=== PATIENT | male | born 1980 | race Caucasian/White ===

== ENCOUNTER 2019-05-11 21:58 | Emergency (ER) | payer MEDICAID, SELFPAY | END 2019-05-12 | disposition home or self-care (01) | PROVIDERS: Emergency Provider Emergency Medicine; Family Provider Family Medicine; Visit Provider Emergency Medicine | DX: M54.16 Radiculopathy, lumbar region (principal); I10 Essential (primary) hypertension; Z87.891 Personal history of nicotine dependence ==

== ENCOUNTER 2019-06-11 11:28 | Outpatient (CLI) | payer MEDICAID, SELFPAY ==
--- NOTE | 2019-06-11 11:36 | MR_ITS ---
WS: [id number] MRI LUMBAR SPINE NONCONTRAST HISTORY: LUMBOSACRAL Spondylosis; lumbosacral DDD COMPARISON: 10/16/2005 TECHNIQUE: Sagittal and axial multisequence imaging is submitted. Sagittal survey demonstrates slight increase in thoracic kyphosis. 7 cervical and 12 thoracic vertebr al bodies are numbered. 5 lumbar type vertebral bodies and transitional S1. Disc space narrowing and desiccation throughout the lumbar spine. Conus terminates normally at L1. L1-L2: Normal. L2-L3: Small amount of fluid in the facet joints with no stenosis. L3-L4: Annular disc bulging and a moderate-sized LEFT paracentral disc protrusion with mild contact o f the cord. Posterior displacement and abutment on the L4 nerve root in the lateral recess. L4-L5: Annular disc bulging and osteophyte deformity. Moderate ligamentum flavum and facet arthropath y. Mild central and subarticular recess stenosis. L5-S1: Diffuse annular disc bulging. Moderate-sized disc protrusion extends into the LEFT paracentral and LEFT foramen with deformity of the thecal sac and encroachment on the S1 nerve root. LEFT subart icular recess and foraminal stenosis. S1-S2 disc level demonstrates broad posterior disc bulging with a central disc protrusion. No signif icant stenosis. There is a rudimentary disc at the S1-S2 level. MR/MR lumbar spine wo con* [id number] IMPRESSION: 1. 5 lumbar type vertebral bodies with a transitional S1 vertebral body. Pleas e note this numbering pattern if surgery is ever contemplated. 2. Moderate size LEFT paracentral and proximal foraminal disc protrusion at L5 -S1 with encroachment into the subarticular recess and foramen. 3. Moderate-sized LEFT paracentral disc protrusion at L3-4 with mild encroachm ent upon the LEFT L4 nerve root.
--- NOTE | 2019-06-11 12:08 | XR_ITS ---
WS: [id number] Orbits 2 views. HISTORY: Screening prior to MRI. No metallic foreign bodies are noted over the orbits or globes or within the soft tissues. XR/[place] [id number] IMPRESSION: No metallic foreign bodies. Proceed to MRI.
== END 2019-06-11 11:29 | disposition home or self-care (01) ==
LOC: RADSHAW 11:34
PROVIDERS: Family Provider Family Medicine; PCP Family Medicine; Visit Provider Nurse Practitioner Psychiatric/Mental Health
DX: M47.817 Spondylosis without myelopathy or radiculopathy, lumbosacral region (principal); M51.17 Intervertebral disc disorders with radiculopathy, lumbosacral region; Z01.818 Encounter for other preprocedural examination; M51.27 Other intervertebral disc displacement, lumbosacral region; M51.26 Other intervertebral disc displacement, lumbar region
CPT/HCPCS: 70030; 72148

== ENCOUNTER 2019-08-17 14:46 | Outpatient (CLI) | payer MEDICAID, SELFPAY ==
--- NOTE | 2019-08-17 15:15 | MR_ITS ---
WS: [id number] MRI LUMBAR SPINE WITH CONTRAST TECHNIQUE: Sagittal T1, T2 and STIR imaging. Axial T1 and T2 imaging. Post gadolinium imaging was obt ained. CLINICAL INFORMATION: low back pain. COMPARISON: MRI June 11, 2019 FINDINGS: 5 lumbar type vertebral bodies. S1 is transitional and lumbarized in keeping with the prior numbering convention. Recommend correlation with radiographs prior to surgical intervention. Left pericentral protrusion L5-S1 is progressed from previous. L1-L2: Normal. L2-L3: Normal. L3-L4: Left pericentral disc protrusion with impingement left subarticular recess. Impingement betty sing left L4 nerve root. Mild central canal stenosis. Mild facet arthropathy. Foramen are patent. L4-L5: Mild annular bulging. Mild facet arthropathy. Spinal canal and foramen are patent. L5-S1: Prominent left pericentral disc protrusion is new from previous. Impingement on the traversing left S1 nerve root. Mild facet arthropathy. Mild central canal stenosis. Foramen are patent. S1-S2: Mild disc bulging with osteophytic ridging. Mild facet arthropathy. Spinal canal and foramen a re patent. Visualized pelvic bony structures: Normal. Paravertebral soft tissues: Normal. MR/MR lumbar spine wo/w con [id number] IMPRESSION: 1. S1 is transitional and lumbarized in keeping with the prior numbering conve ntion. Recommend radiograph correlation prior to surgical intervention. 2. Prominent left pericentral protrusion L5-S1 is new/progressed from previou s with impingement left subarticular recess and traversing left S1 nerve root. Recommend correlation left S1 nerve root symptoms. 3. Small left pericentral protrusion L3-4 impinges the left subarticular reces s and contacts the left L4 nerve root. Mild left foraminal narrowing.
--- NOTE | 2019-08-17 16:00 | XR_ITS ---
WS: [id number] LUMBAR SPINE FLEXION AND EXTENSION TECHNIQUE: 3 views of the lumbar spine: Lateral neutral, flexion, and extension views. CLINICAL INFORMATION: Low back pain COMPARISON: None. FINDINGS: Bilateral L5 spondylolysis. Grade 1 anterolisthesis L5 on S1 measuring 7.8 mm. This increases to 8.7 mm in flexion and decreases to 5.6 mm on extension. Mild disc space narrowing L3-L4 L4-L5 and L5-S1. Moderate facet arthropathy l ower lumbar spine. XR/XR lumbar spine f/e only [id number] IMPRESSION: Mild flexion/extension stability L5-S1 as described above.
== END 2019-08-17 14:47 | disposition home or self-care (01) ==
LOC: RADWPI 14:50
PROVIDERS: Family Provider Family Medicine; PCP Family Medicine; Visit Provider Licensed Practical Nurse
DX: M51.26 Other intervertebral disc displacement, lumbar region (principal)
CPT/HCPCS: 72120; 72158; A9579

== ENCOUNTER 2019-09-16 12:54 | Outpatient (CLI) | payer MEDICAID, SELFPAY ==
--- NOTE | 2019-09-16 09:00 | XR_ITS ---
WS: [id number] HIPS BILATERAL TECHNIQUE: 5 views bilateral hips Including pelvis CLINICAL INFORMATION: hip pain COMPARISON: None. FINDINGS: Mild degenerative arthritis both hips with joint space narrowing. Normal pubic rami. Femoral heads an d necks are normal in appearance. No acute fractures. Normal proximal femurs. Bony pelvis is otherwis e unremarkable. XR/XR hip BI 3-4V wo/w pel [id number] IMPRESSION: No acute fractures
--- NOTE | 2019-09-16 13:15 | CT_ITS ---
WS: [id number] CT LUMBAR SPINE TECHNIQUE: Noncontrast CT of the lumbar spine with coronal and sagittal reformatted images. CLINICAL INFORMATION: lumbar pain COMPARISON: MRI August 17, 2019 DLP: [address] scans at [facility] use at least one of these dose optimization techniques: automat ed exposure control; mA and/or kV adjustment per patient size (includes targeted exams where dose is matched to clinical indication); or iterative reconstruction. FINDINGS: 5 lumbar type vertebral bodies. S1 is transitional and lumbarized in keeping with the prior numbering conventions. Prominent left pericentral disc protrusion L5-S1 appears unchanged since the recent MRI . Impingement on the left subarticular recess at this level. Chronic bilateral pars defects S1-2 with sclerosis L1-L2: Normal. L2-L3: Normal. L3-L4: Again seen is the small left pericentral disc protrusion with impingement left subarticular re cess. Impingement traversing left L4 nerve root. Mild central canal stenosis. Mild facet arthropathy. Foramen are patent. L4-L5: Small central disc protrusion with osteophytic ridging. Slight effacement of ventral thecal sa c. Mild facet arthropathy. Spinal canal and foramen are patent. L5-S1: Prominent left pericentral disc protrusion is stable since the prior MRI. Impingement on the t raversing left S1 nerve root. Mild facet arthropathy. Mild central canal stenosis. Mild left proximal foraminal narrowing. S1-S2: Mild disc bulging with osteophytic ridging. Moderate facet arthropathy. Spinal canal and serafin en are patent. Chronic bilateral pars defects at this level with sclerosis. No anterolisthesis. Visualized pelvic bony structures: Normal. Paravertebral soft tissues: Normal. Normal caliber abdominal aorta. CT/CT lumbar spine wo con* [id number] IMPRESSION: 1. Chronic bilateral pars defects S1 with sclerosis. No anterolisthesis. 2. S1 is transitional and lumbarized in keeping with the prior numbering conven tion. Recommend radiographic correlation prior to surgical intervention. 2. Prominent left pericentral protrusion L5-S1 is stable from previous with imp ingement left subarticular recess and traversing left S1 nerve root. Recommend correlation left S1 nerve root symptoms. 3. Small left pericentral protrusion L3-4 impinges the left subarticular recess and contacts the left L4 nerve root. Mild left foraminal narrowing.
== END 2019-09-16 12:55 | disposition home or self-care (01) ==
LOC: RADWPI 12:56
PROVIDERS: Family Provider Family Medicine; PCP Family Medicine; Visit Provider Specialist
DX: M51.27 Other intervertebral disc displacement, lumbosacral region (principal); M51.26 Other intervertebral disc displacement, lumbar region; M25.552 Pain in left hip; M25.551 Pain in right hip
CPT/HCPCS: 72131; 73522

== ENCOUNTER → 2019-11-13 10:15 | Outpatient (BNVA) | payer MEDICAID, SELFPAY | PROVIDERS: Family Provider Family Medicine; PCP Family Medicine; Referring Provider Specialist; Visit Provider Anesthesiology Pain Medicine | DX: M43.17 Spondylolisthesis, lumbosacral region (principal); M54.9 Dorsalgia, unspecified; M51.17 Intervertebral disc disorders with radiculopathy, lumbosacral region; M51.16 Intervertebral disc disorders with radiculopathy, lumbar region; M25.551 Pain in right hip; M25.552 Pain in left hip; M51.37 Other intervertebral disc degeneration, lumbosacral region; M96.1 Postlaminectomy syndrome, not elsewhere classified; Z79.891 Long term (current) use of opiate analgesic | CPT/HCPCS: 99204; 99205 ==

== ENCOUNTER → 2019-12-11 09:16 | Outpatient (BNVA) | payer MEDICAID, SELFPAY | PROVIDERS: Family Provider Family Medicine; PCP Family Medicine; Visit Provider Anesthesiology Pain Medicine | DX: M51.16 Intervertebral disc disorders with radiculopathy, lumbar region (principal); M43.06 Spondylolysis, lumbar region; M51.17 Intervertebral disc disorders with radiculopathy, lumbosacral region; M51.37 Other intervertebral disc degeneration, lumbosacral region; M54.9 Dorsalgia, unspecified; M25.551 Pain in right hip; M25.552 Pain in left hip; M96.1 Postlaminectomy syndrome, not elsewhere classified; Z98.890 Other specified postprocedural states; Z79.891 Long term (current) use of opiate analgesic | CPT/HCPCS: 99214 ==

== ENCOUNTER → 2019-12-28 13:35 | Outpatient (BNVA) | payer MEDICAID, SELFPAY | PROVIDERS: Family Provider Family Medicine; PCP Family Medicine; Visit Provider Anesthesiology Pain Medicine | DX: M51.17 Intervertebral disc disorders with radiculopathy, lumbosacral region (principal); M51.16 Intervertebral disc disorders with radiculopathy, lumbar region; M54.9 Dorsalgia, unspecified | CPT/HCPCS: 64483; 64484; J1040; J3490 ==

== ENCOUNTER → 2020-01-14 13:16 | Outpatient (BNVA) | payer MEDICAID, SELFPAY | PROVIDERS: Family Provider Family Medicine; PCP Family Medicine; Visit Provider Anesthesiology Pain Medicine | DX: M51.16 Intervertebral disc disorders with radiculopathy, lumbar region (principal); M43.17 Spondylolisthesis, lumbosacral region; M51.17 Intervertebral disc disorders with radiculopathy, lumbosacral region; M51.37 Other intervertebral disc degeneration, lumbosacral region; M25.551 Pain in right hip; M25.552 Pain in left hip; M96.1 Postlaminectomy syndrome, not elsewhere classified; M54.9 Dorsalgia, unspecified; Z98.890 Other specified postprocedural states; Z79.891 Long term (current) use of opiate analgesic | CPT/HCPCS: 99214 ==

== ENCOUNTER 2020-02-21 11:29 | Emergency (ER) | payer MEDICAID, SELFPAY ==
[2020-02-21 11:32] VITALS: BP 150/83; PULSE 79; RESP 14; TEMP 36.3; O2SAT 98; BMI 39.9
--- NOTE | 2020-02-21 12:26 | USR_ITS ---
PROCEDURE INFORMATION: Exam: US Duplex Right Lower Extremity Veins, Limited Exam date and time: 02/21/2020 12:32 PM Age: 39 years old Clinical indication: Swelling (edema) of limb; Lower extremity, right; Additional info: Swelling - possible dvt TECHNIQUE: Imaging protocol: Real-time Duplex ultrasound of the Right Lower Extremity with 2-D glez scale, color Doppler flow and spectral waveform analysis with image documentation. Limited exam was focused on the right lower extremity veins. COMPARISON: No relevant prior studies available. FINDINGS: Right deep veins: Unremarkable. The common femoral, femoral, proximal profunda femoral, popliteal and visualized calf veins are patent without thrombus. Normal Doppler waveforms. Normal compressibility and/or augmentation response. Right superficial veins: Unremarkable. Saphenofemoral junction is patent without thrombus. Soft tissues: Unremarkable. US/[place] [id number] IMPRESSION: No sonographic evidence of deep vein thrombosis.
[2020-02-21 12:34] LABS: Basophils # 0.1 10^3/uL (0.0-0.1); Basophils % 1.5 %; Eosinophils # 0.2 10^3/uL (0.0-0.8); Eosinophils % 4.4 %; Hematocrit 42.3 % (42.0-52.0); Hemoglobin 14.4 g/dL (11.7-16.6); Lymphocytes # 1.7 10^3/uL (0.8-4.8); Lymphocytes % 31.7 %; Mean Corpuscular Hemoglobin 29.6 pg (28.0-34.0); Mean Platelet Volume 10.7 fL (7.4-10.4); Monocytes # 0.4 10^3/uL (0.2-0.9); Monocytes % 7.4 %; Neutrophils # 2.88 10^3/uL (1.8-7.7); Neutrophils % 54.6 %; Nucleated Red Blood Cells % 0 %; Platelet Count 194 10^3/cmm (130-400); Red Blood Count 4.86 10^6/uL (4.1-5.3); Red Cell Distribution Width 13.4 % (12.1-15.1); White Blood Count 5.3 10^3/uL (4.0-10.0)
--- NOTE | 2020-02-21 12:53 | W.ED.GENADLT ---
HPI - General Adult General: Chief complaint: General Medical Stated complaint: SWELLING EXTREMITIES Time Seen by Provider: 02/21/20 11:56 Source: patient Mode of arrival: ambulatory Limitations: no limitations History of Present Illness: HPI narrative: 39-year-old male patient presents to the emergency department with lower extremity edema. Patient states he is having some pain in the right calf. Patient states he has been traveling recently after being off work for 6 months. Patient states he has never had swelling like this. Patient denies any chest pain or shortness of breath. Patient states he does have multiple bug bites to both lower extremities and is unsure if this is related. Patient denies being bit by a tick. Patient denies any other systemic symptoms of illness. Patient is afebrile. Associated symptoms: Deny chest pain, dyspnea, headache(s), nausea, palpitations, syncope or vomiting Review of Systems General: Reports: 10 or more systems reviewed and unremarkable except in HPI and below Const: Denies: fever(s) or chills Eyes: Denies: change in vision or blurry vision Card: Denies: chest pain, palpitations, irregular heart rhythm, lightheadedness, syncope or dyspnea on exertion Resp: Denies: dyspnea, productive cough, non-productive cough, wheezing or pain on inspiration GI: Denies: abdominal pain, nausea, vomiting, diarrhea or constipation : Denies: flank pain, difficulty urinating, dysuria or urinary frequency Musc: Reports: back pain (Patient complains of back pain states this is chronic and his pain is no different than normal), extremity pain and extremity swelling; Denies: neck pain Neuro: Denies: headache(s), numbness in extremities, weakness in extremities or lack of coordination PFS ED PFSH: Medical History Degeneration of lumbar or lumbosacral intervertebral disc Displacement of lumbar disc with radiculopathy Hip pain, bilateral Intervertebral disc disorder with radiculopathy of lumbosacral region Lumbar spondylolysis Spondylolisthesis, lumbosacral region Surgical History History of lumbar surgery (~2006) 08/20/2006 Dr. 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 History of recent travel: No Physical Exam Const: COMMON NORMALS: no acute distress, average body habitus, patient oriented x3, no limitations, healthy appearing, alert and well nourished Chest: COMMONS NORMALS: normal inspection of the chest, normal palpation of entire chest wall, normal inspection of the breasts and normal palpation of the breasts Resp: COMMON NORMALS: normal respiratory effort, No retractions, No use of accessory muscles, clear to auscultation bilaterally and percussion normal AUSCULTATION: clear to auscultation bilaterally PERCUSSION: percussion normal Cardio: COMMON NORMALS: regular rate and regular rhythm RATE: regular rate RHYTHM: regular rhythm : COMMON NORMALS: Yes no CVA tenderness BLADDER/KIDNEY EXAM: Yes no CVA tenderness Back/Pelvis: COMMON NORMALS: no CVA tenderness Extremity: RIGHT LOWER EXTREMITY: Yes lower leg Right lower leg: Yes neurovascular exam (Neurovascularly intact) and Yes other (Patient does have calf tenderness and a positive Homans sign) LEFT LOWER EXTREMITY: Yes lower leg (Patient denies any pain. Patient is neurovascularly intact. Patient does have swelling noted to the left ankle) Neuro: COMMON NORMALS: patient oriented x3 SENSORIUM/ORIENTATION: Yes alert Psych: COMMON NORMALS: mental status grossly normal, Normal thought process present, cooperative, normal affect, speech normal, activity/motor behavior normal, denies hallucinations, denies homicidal ideation and denies suicidal ideation SPEECH: Yes normal speech THOUGHT PROCESS: Normal thought process present Skin: COMMON NORMALS: no rashes or lesions noted, no wounds, turgor normal, no jaundice, no petechiae and no mottling GENERAL SKIN EXAM: no rashes or lesions noted and turgor normal Course Vital Signs: Vital signs: Vital Signs Temperature 97.3 F L 02/21/20 11:32 Pulse Rate 86 02/21/20 13:58 Respiratory Rate 18 02/21/20 13:58 Blood Pressure 150/83 02/21/20 11:32 Pulse Oximetry 99 02/21/20 13:58 MDM - General Adult MDM Narrative: Medical decision making narrative: Patient is well-appearing nontoxic and in no acute distress. Given patient's clinical exam findings as well as complaint I did ultrasound his right lower extremity ultrasound was negative for DVT. 39-year-old male patient presents to the emergency department with lower extremity edema. Patient states he is having some pain in the right calf. Patient states he has been traveling recently after being off work for 6 months. Patient states he has never had swelling like this. Patient denies any chest pain or shortness of breath. Patient states he does have multiple bug bites to both lower extremities and is unsure if this is related. Patient denies being bit by a tick. Patient denies any other systemic Patient is neurovascularly intact. Labs do not reveal any concerning findings given patient is erythematous with bug bites I will go ahead and treat him for cellulitis. Patient is afebrile. Return precautions have been advised home care instructions have been reviewed patient is medically cleared and appropriate for discharge Differential Diagnosis: Differential Diagnosis: Cellulitis, DVT, lower extremity edema Lab Data: Labs: Lab Results 02/21/20 02/21/20 02/21/20 Range/Units 12:25 12:25 12:25 WBC 5.3 (4.0-10.0) 10^3/ uL RBC 4.86 (4.1-5.3) 10^6/u L Hgb 14.4 (11.7-16.6) g/dL Hct 42.3 (42.0-52.0) % MCV 87.0 (80-94) fL MCH 29.6 (28.0-34.0) pg MCHC 34.0 (30.0-36.0) g/dL RDW 13.4 (12.1-15.1) % Plt Count 194 (130-400) 10^3/c mm MPV 10.7 H (7.4-10.4) fL Neut % (Auto) 54.6 % Lymph % (Auto) 31.7 % [place] % (Auto) 7.4 % Eos % (Auto) 4.4 % Baso % (Auto) 1.5 % Neut # (Auto) 2.88 (1.8-7.7) 10^3/u L Lymph # (Auto) 1.7 (0.8-4.8) 10^3/u L [place] # (Auto) 0.4 (0.2-0.9) 10^3/u L Eos # (Auto) 0.2 (0.0-0.8) 10^3/u L Baso # (Auto) 0.1 (0.0-0.1) 10^3/u L Nucleated RBC % (a uto) 0 % Nucleated RBCs # 0.0 /100WBC ESR 17 H (0-10) mm/hr Sodium 137 (136-145) mmol/L Potassium 4.1 (3.5-5.1) mmol/L Chloride 103 (98-107) mmol/L Carbon Dioxide 26 (22-29) mmol/L Anion Gap 12.1 (5-19) BUN 12 (6-20) mg/dL Creatinine 0.8 (0.7-1.2) mg/dL GFR Calculation 107.6 (90-130) mL/min Glucose 123 H (65-115) mg/dL Calculated Osmolal ity 285 (285-295) mOsm/k g Calcium 9.4 (8.5-10.5) mg/dL Total Bilirubin 0.5 (0.15-1.2) mg/dL AST 57 H (0-40) U/L ALT 71 H (0-41) U/L Alkaline Phosphata se 68 (40-130) IU/L C-Reactive Protein 6.0 H (0.0-4.9) mg/L Total Protein 6.8 (6.6-8.7) g/dL Albumin 4.1 (3.5-5.2) g/dL Globulin 2.7 (1.3-4.6) g/dL Discharge Plan Discharge Patient Disposition: Home Clinical Impression: Cellulitis Qualifiers: Site of cellulitis: extremity Site of cellulitis of extremity: lower extremity Laterality: unspecified laterality Qualified Code(s): L03.119 - Cellulitis of unspecified part of limb Condition: Stable Prescriptions: New Keflex 500 mg capsule 500 mg PO Q6H 10 Days Qty: 40 RF: 0 No Action naproxen sodium [Aleve] 220 mg capsule 220 mg PO BID PRN (Reason: Pain) RF: 0 pregabalin [Lyrica] 100 mg capsule 100 mg PO TID Qty: 90 RF: 0 meloxicam 7.5 mg tablet 7.5 mg PO BID Qty: 60 RF: 0 tizanidine 4 mg tablet 4 mg PO BID PRN (Reason: muscle spasticity) Qty: 60 RF: 0 tramadol 50 mg tablet 50 mg PO TID PRN (Reason: pain) Qty: 90 RF: 0 Multiple Vitamin-Minerals Tablet 1 tab PO DAILY RF: 0 Combivent Respimat 20-100 mcg/actuation mist 1 puff INHALATION QID PRN (Reason: WHEEZING/SHORTNESS OF BREATH) RF: 0 Zzquill See Rx Instructions .ROUTE .COMPLEX RF: 0 Discharge Orders: Discharge Order (Routine); Ordered 02/21/20 Ordered By: Cecilia Arriola Referrals: Julio Cesar Sarkar MD [Primary Care Provider] - Discharge Diet: Advance as tolerated Discharge Activity: Resume usual activity Patient Instructions: Cellulitis (ED) Activity Restrictions/Additional Instructions: Please take antibiotics as prescribed Please return to ER with any worsening of edema, fever or spreading of redness or any other concerning symptoms Please follow up with your Pcp Discharge Date/Time: 02/21/20 13:59 Coding Level of Care Code ED 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
[2020-02-21 12:54] LABS: Alanine Aminotransferase 71 U/L (0-41); Albumin Level 4.1 g/dL (3.5-5.2); Alkaline Phosphatase 68 IU/L (40-130); Anion Gap 12.1 (5-19); Aspartate Amino Transferase 57 U/L (0-40); Blood Urea Nitrogen 12 mg/dL (6-20); Calcium 9.4 mg/dL (8.5-10.5); Carbon Dioxide 26 mmol/L (22-29); Chloride 103 mmol/L (98-107); Globulin 2.7 g/dL (1.3-4.6); Glomerular Filtration Rate 107.6 mL/min (90-130); Glucose 123 mg/dL (65-115); Osmolality Calculated 285 mOsm/kg (285-295); Potassium 4.1 mmol/L (3.5-5.1); Sodium 137 mmol/L (136-145); Total Bilirubin 0.5 mg/dL (0.15-1.2); Total Protein 6.8 g/dL (6.6-8.7)
[2020-02-21 13:31] LABS: Erythrocyte Sedimentation Rate 17 mm/hr (0-10)
[2020-02-21 13:58] VITALS: PULSE 86; RESP 18; O2SAT 99
== END 2020-02-21 13:59 | disposition home or self-care (01) ==
PROVIDERS: Emergency Provider Registered Nurse; PCP Family Medicine
DX: L03.115 Cellulitis of right lower limb (principal); Z87.891 Personal history of nicotine dependence
CPT/HCPCS: 12345; 80053; 85025; 85651; 86140; 93971; 99282; 99283

== ENCOUNTER → 2020-04-25 10:40 | Outpatient (BNVA) | payer MEDICAID, SELFPAY | PROVIDERS: PCP Family Medicine; Visit Provider Anesthesiology Pain Medicine | DX: M51.16 Intervertebral disc disorders with radiculopathy, lumbar region (principal); M54.9 Dorsalgia, unspecified; M25.551 Pain in right hip; M25.552 Pain in left hip; M43.06 Spondylolysis, lumbar region; M96.1 Postlaminectomy syndrome, not elsewhere classified; M51.17 Intervertebral disc disorders with radiculopathy, lumbosacral region; M51.37 Other intervertebral disc degeneration, lumbosacral region; Z98.890 Other specified postprocedural states; Z79.891 Long term (current) use of opiate analgesic | CPT/HCPCS: 99213; 99214 ==

== ENCOUNTER → 2020-05-23 10:40 | Outpatient (BNVA) | payer MEDICAID, SELFPAY | PROVIDERS: PCP Family Medicine; Visit Provider Anesthesiology Pain Medicine | DX: M51.16 Intervertebral disc disorders with radiculopathy, lumbar region (principal); M51.17 Intervertebral disc disorders with radiculopathy, lumbosacral region; M43.17 Spondylolisthesis, lumbosacral region; M51.37 Other intervertebral disc degeneration, lumbosacral region; M54.9 Dorsalgia, unspecified; M25.551 Pain in right hip; M25.552 Pain in left hip; M79.7 Fibromyalgia; M96.1 Postlaminectomy syndrome, not elsewhere classified; Z79.891 Long term (current) use of opiate analgesic | CPT/HCPCS: 99214 ==